=== PATIENT | male | born 1970 | race Caucasian/White ===

== ENCOUNTER 2023-11-20 13:04 | Outpatient (OUT) | payer OTHER, SELFPAY ==
--- NOTE | 2023-11-20 | XR_ITS ---
The [address] [address] Patient Name: CHICO MAZARIEGOS MRN: [id number] date: 1970 Sex: M Assigned Patient Location: Current Patient Location: Accession/Order Number: [id number] Exam Date: 11/20/2023 13:49 Report Date: 11/20/2023 15:33 At the request of: POLO ANTONY Procedure: XR ankle DEVANTE min 3V EXAMINATION: XR foot DEVANTE min 3V, XR ankle DEVANTE min 3V HISTORY: BILATERAL FOOT PAIN COMPARISON: No relevant comparison available. FINDINGS: RIGHT FINDINGS: BONES: No acute fracture or dislocation. Marked degenerative changes of the midfoot with extensive bony remodeling and heterotopic ossification. SOFT TISSUES: Dorsal soft tissue swelling OTHER: Negative. LEFT FINDINGS: BONES: No acute fracture or dislocation. Marked degenerative changes of the midfoot with bony remodeling. Heterotopic ossification. 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 Lateral subluxation of the third proximal phalanx in relation to the metatarsal SOFT TISSUES: Dorsal soft tissue swelling OTHER: Negative. XR/XR ankle DEVANTE min 3V IMPRESSION: Marked bilateral degenerative changes, right greater than left. Consistent with known neuropathic osteoarthropathy Electronically authenticated by: KELI FARRIS Date: 11/20/2023 15:33
--- NOTE | 2023-11-20 | XR_ITS ---
The [address] [address] Patient Name: CHICO MAZARIEGOS MRN: [id number] date: 1970 Sex: M Assigned Patient Location: Current Patient Location: Accession/Order Number: [id number] Exam Date: 11/20/2023 13:49 Report Date: 11/20/2023 15:33 At the request of: POLO ANTONY Procedure: XR foot DEVANTE min 3V EXAMINATION: XR foot DEVANTE min 3V, XR ankle DEVANTE min 3V HISTORY: BILATERAL FOOT PAIN COMPARISON: No relevant comparison available. FINDINGS: RIGHT FINDINGS: BONES: No acute fracture or dislocation. Marked degenerative changes of the midfoot with extensive bony remodeling and heterotopic ossification. SOFT TISSUES: Dorsal soft tissue swelling OTHER: Negative. LEFT FINDINGS: BONES: No acute fracture or dislocation. Marked degenerative changes of the midfoot with bony remodeling. Heterotopic ossification. 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 Lateral subluxation of the third proximal phalanx in relation to the metatarsal SOFT TISSUES: Dorsal soft tissue swelling OTHER: Negative. XR/XR foot DEVANTE min 3V IMPRESSION: Marked bilateral degenerative changes, right greater than left. Consistent with known neuropathic osteoarthropathy Electronically authenticated by: KELI FARRIS Date: 11/20/2023 15:33
== END 2023-11-20 13:05 | disposition home or self-care (01) ==
LOC: EC 13:04
PROVIDERS: Visit Provider Podiatrist Foot & Ankle Surgery
DX: M25.571 Pain in right ankle and joints of right foot (principal); M25.572 Pain in left ankle and joints of left foot; M19.072 Primary osteoarthritis, left ankle and foot; M19.071 Primary osteoarthritis, right ankle and foot
CPT/HCPCS: 73610; 73630